=== PATIENT | male | born 1995 | race Hispanic/Latino ===

== ENCOUNTER 2019-10-08 18:12 | Emergency (ER) | payer OTHER ==
[~2019-10-08] VITALS: Ht 165.1 cm; Wt 90.9 kg
[2019-10-08 18:13] VITALS: BP 133/71
[2019-10-08] MEDS ORDERED: NAPR-885 PO (18:58)
[2019-10-08] MEDS ORDERED: CYCL10TA PO (18:58)
[2019-10-08] MEDS ORDERED: CYCLOBENZAPRINE 10 MG TAB PO ONE (19:00)
[2019-10-08] MEDS ORDERED: NAPROXEN 250 MG TAB PO ONE (19:00)
== END 2019-10-08 19:15 | disposition home or self-care (01) ==
LOC: M ED 18:12
DX: S39.012A Strain of muscle, fascia and tendon of lower back, initial encounter (principal); X58.XXXA Exposure to other specified factors, initial encounter; Y92.89 Other specified places as the place of occurrence of the external cause; F17.210 Nicotine dependence, cigarettes, uncomplicated